=== PATIENT | female | born 1990 | race Caucasian/White ===

== ENCOUNTER 2016-07-18 09:17 | Emergency (ER) | payer OTHER ==
[2016-07-18 10:06] VITALS: BP 130/81
--- NOTE | 2016-07-18 10:47 | UC ---
Throat Pain/Nasal Davis HPI - HPI Summary HPI Summary: ONE WEEK OF SINUS PRESSURE, CONGESTION AND COUGH. NO FEVER - History of Current Complaint Chief Complaint: UCGeneralIllness Stated Complaint: SINUS COMPLAINT Time Seen by Provider: 07/18/16 10:02 Hx Obtained From: Patient, Family/Nursing Assistant Hx Last Menstrual Period: 06/30/16 Onset/Duration: Gradual Onset, Lasting Weeks, Still Present Severity: Moderate Pain Intensity: 5 Pain Scale Used: Adult Non Verbal Cough: Nonproductive Associated Signs & Symptoms: Positive: Hoarseness, Sinus Discomfort, Nasal Discharge - Epiglottits Risk Factors Epiglottis Risk Factors: Negative - Allergies/Home Medications Allergies/Adverse Reactions: Allergies Allergy/AdvReac Type Severity Reaction Status Date / Time No Known Allergies Allergy Verified 02/24/16 09:26 PMH/Surg Hx/FS Hx/Imm Hx Previously Healthy: Yes Endocrine History Of: Denies: Diabetes, Thyroid Disease Cardiovascular History Of: Denies: Cardiac Disorders, Hypertension Respiratory History Of: Denies: COPD, Asthma GI/ History Of: Denies: Ulcer - Surgical History Surgical History: None - Family History Known Family History: Positive: Other - HLD Negative: Cardiac Disease, Hypertension, Diabetes - Social History Occupation: Employed Full-time Lives: With Family Alcohol Use: Occasionally Alcohol Amount: 1-2 on the weekend Substance Use Type: None Substance Use Comment - Amount & Last Used: quit in [place] Smoking Status (MU): Never Smoked Tobacco - Immunization History Most Recent Influenza Vaccination: not utd Most Recent Tetanus Shot: utd Most Recent Pneumonia Vaccination: none Review of Systems Constitutional: Negative Skin: Negative Eyes: Negative ENT: Nasal Discharge Respiratory: Cough Cardiovascular: Negative Gastrointestinal: Negative Genitourinary: Negative Motor: Negative Neurovascular: Negative Musculoskeletal: Negative Neurological: Negative Psychological: Negative All Other Systems Reviewed And Are Negative: Yes Physical Exam Triage Information Reviewed: Yes Appearance: Well-Appearing, No Pain Distress, Well-Nourished Vital Signs: Initial Vital Signs Temp 99.9 F 07/18/16 09:38 Pulse 90 07/18/16 09:38 Resp 18 07/18/16 09:38 BP 130/81 07/18/16 09:38 Pulse Ox 98 07/18/16 09:38 Vital Signs Reviewed: Yes Eye Exam: Normal ENT: Positive: Pharynx normal, TM bulging, TM dull Dental Exam: Normal Neck exam: Normal Neck: Positive: Supple, Nontender Respiratory Exam: Normal Respiratory: Positive: Chest non-tender, Lungs clear, Normal breath sounds, No respiratory distress, No accessory muscle use Cardiovascular Exam: Normal Cardiovascular: Positive: RRR, No Murmur Abdominal Exam: Normal Musculoskeletal Exam: Normal Musculoskeletal: Positive: Strength Intact, ROM Intact Neurological Exam: Normal Psychological Exam: Normal Skin Exam: Normal Throat Pain/Nasal Course/Dx - Differential Dx/Diagnosis Differential Diagnosis/HQI/PQRI: Mononucleosis, Pharyngitis, Sinusitis, Tonsillitis, URI Provider Diagnoses: SINUSITIS Discharge - Discharge Plan Condition: Stable Disposition: HOME Prescriptions: Amoxicillin/Clavulanate TAB* [Augmentin TAB 875*] 875 mg PO BID #20 tab Patient Education Materials: Sinusitis (ED) Forms: *Work Release Referrals: Soha Oscar NP [Primary Care Provider] -
== END 2016-07-18 10:25 | disposition home or self-care (01) ==
LOC: UCEAST 09:17
DX: J32.9 Chronic sinusitis, unspecified (principal)
CPT/HCPCS: 99212; G0463

== ENCOUNTER 2017-01-10 19:28 | Emergency (ER) | payer OTHER ==
[2017-01-10 19:57] VITALS: BP 142/92
--- NOTE | 2017-01-10 20:05 | UC ---
Complaint Female HPI - HPI Summary HPI Summary: Urinary pain, frequency, and blood starting today. Denies fever, vomiting, or back pain. No vaginal symptoms. - History Of Current Complaint Chief Complaint: UCGU Stated Complaint: burning urination Time Seen by Provider: 01/10/17 19:48 Hx Obtained From: Patient Hx Last Menstrual Period: December 22, 2016 ?: No Onset/Duration: Gradual Onset, Lasting Hours Timing: Constant Severity Initially: Moderate Severity Currently: Mild Character: Dull, Burning Aggravating Factor(s): Urination Associated Signs And Symptoms: Negative: Fever, Back Pain, Vaginal Bleeding/ Discharge - Allergies/Home Medications Allergies/Adverse Reactions: Allergies Allergy/AdvReac Type Severity Reaction Status Date / Time No Known Allergies Allergy Verified 02/24/16 09:26 PMH/Surg Hx/FS Hx/Imm Hx Previously Healthy: Yes - Surgical History Surgical History: None - Family History Known Family History: Positive: Other - HLD Negative: Cardiac Disease, Hypertension, Diabetes - Social History Occupation: Employed Full-time Alcohol Use: Occasionally Alcohol Amount: 1-2 on the weekend Substance Use Type: Marijuana Substance Use Comment - Amount & Last Used: quit in [place] Smoking Status (MU): Never Smoked Tobacco - Immunization History Most Recent Influenza Vaccination: not utd Most Recent Tetanus Shot: utd Most Recent Pneumonia Vaccination: none Review of Systems Constitutional: Negative Skin: Negative Eyes: Negative ENT: Negative Respiratory: Negative Cardiovascular: Negative Gastrointestinal: Negative Genitourinary: Dysuria, Hematuria, Frequency, Urgency Motor: Negative Neurovascular: Negative Musculoskeletal: Negative Neurological: Negative Psychological: Negative Is Patient Immunocompromised?: No All Other Systems Reviewed And Are Negative: Yes Physical Exam Triage Information Reviewed: Yes Appearance: Well-Appearing, No Pain Distress, Well-Nourished Vital Signs: Initial Vital Signs Temp 98.2 F 01/10/17 19:52 Pulse 67 01/10/17 19:52 Resp 16 01/10/17 19:52 BP 142/92 01/10/17 19:52 Pulse Ox 100 01/10/17 19:52 Vital Signs Reviewed: Yes Eye Exam: Normal Eyes: Positive: Conjunctiva Clear ENT Exam: Normal ENT: Positive: Normal ENT inspection, Hearing grossly normal, Pharynx normal, TMs normal Neck exam: Normal Respiratory Exam: Normal Respiratory: Positive: Chest non-tender, Lungs clear, Normal breath sounds, No respiratory distress, No accessory muscle use Cardiovascular Exam: Normal Cardiovascular: Positive: RRR, No Murmur Abdomen Description: Positive: Soft. Negative: CVA Tenderness (R), CVA Tenderness (L) Musculoskeletal Exam: Normal Neurological Exam: Normal Neurological: Positive: Alert Psychological Exam: Normal Skin Exam: Normal Complaint Female Dx - Differential Dx/Diagnosis Provider Diagnoses: UTI Discharge - Discharge Plan Condition: Stable Disposition: HOME Prescriptions: Nitrofurantoin Monohyd Macro [Macrobid] 100 mg PO BID #10 cap Phenazopyridine 200 mg (NF) [Pyridium 200 MG tab *] 200 mg PO TID #3 tab Patient Education Materials: Urinary Tract Infection in Women (ED) Referrals: Soha Oscar NP [Primary Care Provider] -
== END 2017-01-10 20:29 | disposition home or self-care (01) ==
LOC: UCEAST 19:28
DX: N39.0 Urinary tract infection, site not specified (principal); R31.9 Hematuria, unspecified; Z32.02 Encounter for pregnancy test, result negative
CPT/HCPCS: 81003; 84702; 87077; 87086; 87186; 99212; G0463

== ENCOUNTER 2017-04-28 08:53 | Emergency (ER) | payer OTHER ==
[2017-04-28 09:10] VITALS: BP 127/61
--- NOTE | 2017-04-28 10:04 | UC ---
Complaint Female HPI - HPI Summary HPI Summary: 26yo WF c/o uriary frequency urgency dysuria with suprapubic pains x 2 days. Denies f/c/LBP - History Of Current Complaint Chief Complaint: UCGU Stated Complaint: BURNING AND FREQUENT URINATION Time Seen by Provider: 04/28/17 09:16 Hx Obtained From: Patient Hx Last Menstrual Period: 04/13/17 Onset/Duration: Sudden Onset Timing: Constant Severity Initially: Moderate Severity Currently: Moderate - Allergies/Home Medications Allergies/Adverse Reactions: Allergies Allergy/AdvReac Type Severity Reaction Status Date / Time No Known Allergies Allergy Verified 04/28/17 09:06 PMH/Surg Hx/FS Hx/Imm Hx Previously Healthy: Yes - Surgical History Surgical History: None - Family History Known Family History: Positive: Other - HLD Negative: Cardiac Disease, Hypertension, Diabetes - Social History Alcohol Use: Occasionally Alcohol Amount: 1-2 on the weekend Substance Use Type: None Substance Use Comment - Amount & Last Used: quit in highschool Smoking Status (MU): Never Smoked Tobacco - Immunization History Most Recent Influenza Vaccination: not utd Most Recent Tetanus Shot: utd Most Recent Pneumonia Vaccination: none Review of Systems Constitutional: Negative Skin: Negative Eyes: Negative ENT: Negative Respiratory: Negative Cardiovascular: Negative Gastrointestinal: Negative Genitourinary: Dysuria, Frequency, Urgency Motor: Negative Neurovascular: Negative Musculoskeletal: Negative Neurological: Negative Psychological: Negative All Other Systems Reviewed And Are Negative: Yes Physical Exam Triage Information Reviewed: Yes Appearance: No Pain Distress Vital Signs: Initial Vital Signs Temp 36.8 C 04/28/17 09:07 Pulse 69 04/28/17 09:07 Resp 18 04/28/17 09:07 BP 127/61 04/28/17 09:07 Pulse Ox 100 04/28/17 09:07 Vital Signs Reviewed: Yes Eye Exam: Normal ENT Exam: Normal Dental Exam: Normal Neck exam: Normal Neck: Positive: 1 Respiratory Exam: Normal Cardiovascular Exam: Normal Abdominal Exam: Normal Abdomen Description: Positive: Soft, Other: - mild suprapubic tenderness. Negative: CVA Tenderness (R), CVA Tenderness (L) Musculoskeletal Exam: Normal Neurological Exam: Normal Psychological Exam: Normal Skin Exam: Normal Complaint Female Dx - Course Course Of Treatment: UA positive for LE and blood - Differential Dx/Diagnosis Provider Diagnoses: acute cystitis Discharge - Discharge Plan Condition: Stable Disposition: HOME Prescriptions: Sulfamethox/Trimethoprim DS* [Bactrim DS 800/160 TAB*] 1 tab PO BID 7 Days #14 tab Patient Education Materials: Urinary Tract Infection in Women (ED) Referrals: Soha Oscar NP [Primary Care Provider] - Additional Instructions: as tolerated
== END 2017-04-28 10:00 | disposition home or self-care (01) ==
LOC: UCEAST 08:53
DX: N30.00 Acute cystitis without hematuria (principal); Z72.89 Other problems related to lifestyle
CPT/HCPCS: 81003; 87077; 87086; 87186; 99212; G0463

== ENCOUNTER 2017-05-03 20:06 | Emergency (ER) | payer OTHER ==
[2017-05-03 20:14] VITALS: BP 111/69
--- NOTE | 2017-05-03 20:28 | UC ---
Allergic Reaction HPI - HPI Summary HPI Summary: Pt presents with rash to upper body. She tells me that she has been taking Bactrim for a uti for the last 5 days. She is unsure if she has ever taken this before. The day after beginning the bactrim, she developed a "dry rash" on the back of her hands. She didn't think much of it until yesterday when the rash started to move up her b/l forearms. Today has progressed to her shoulders and chest. Her UTI symptoms are improved. She denies fever, chills, SOB or difficulty breathing, chest pain, abdominal pain, n/v/d/c - History of Current Complaint Hx Obtained From: Patient Hx Last Menstrual Period: 04/13/17 Onset/Duration: Gradual Onset Severity Initially: Moderate Severity Currently: Severe Pain Intensity: 9 Pain Scale Used: 0-10 Numeric <Bryant Vigil - Last Filed: 05/03/17 21:07> <Daina Chairez - Last Filed: 05/03/17 22:00> - History of Current Complaint Chief Complaint: UCAllergicReaction Stated Complaint: ALLERGIC REACTION Time Seen by Provider: 05/03/17 20:28 - Allergies/Home Medications Allergies/Adverse Reactions: Allergies Allergy/AdvReac Type Severity Reaction Status Date / Time Sulfa Antibiotics Allergy Severe Hives Verified 05/03/17 20:46 PMH/Surg Hx/FS Hx/Imm Hx Previously Healthy: Yes - Surgical History Surgical History: None - Family History Known Family History: Positive: Other - HLD Negative: Cardiac Disease, Hypertension, Diabetes - Social History Alcohol Use: Occasionally Alcohol Amount: 1-2 on the weekend Substance Use Type: None Substance Use Comment - Amount & Last Used: quit in [place] Smoking Status (MU): Never Smoked Tobacco - Immunization History Most Recent Influenza Vaccination: not utd Most Recent Tetanus Shot: utd Most Recent Pneumonia Vaccination: none <Bryant Vigil - Last Filed: 05/03/17 21:07> Review of Systems Constitutional: Negative Skin: Rash - b/l arms and torso Eyes: Negative ENT: Negative Respiratory: Negative Cardiovascular: Negative Gastrointestinal: Negative Neurological: Negative All Other Systems Reviewed And Are Negative: Yes <Bryant Vigil - Last Filed: 05/03/17 21:07> Physical Exam Triage Information Reviewed: Yes Appearance: Well-Appearing, No Pain Distress, Well-Nourished Vital Signs: Initial Vital Signs Temp 98.2 F 05/03/17 20:11 Pulse 82 05/03/17 20:11 Resp 18 05/03/17 20:11 BP 111/69 05/03/17 20:11 Pulse Ox 100 05/03/17 20:11 Vital Signs Reviewed: Yes Eyes: Positive: Conjunctiva Clear. Negative: Conjunctiva Inflamed, Discharge ENT: Positive: Hearing grossly normal, Pharynx normal, Uvula midline. Negative : Pharyngeal erythema, Tonsillar swelling, Tonsillar exudate, Muffled voice, Hoarse voice Neck: Positive: Supple, Nontender, No Lymphadenopathy Respiratory: Positive: Chest non-tender, Lungs clear, Normal breath sounds, No respiratory distress, No accessory muscle use Cardiovascular: Positive: RRR, No Murmur, Pulses Normal Neurological: Positive: Alert Psychological: Positive: Age Appropriate Behavior Skin: Positive: rashes - Diffuse erythematous smooth plaque with and smooth nodules and wheals that are pruritic on the bilateral arms and chest. No drainage, streaking, or skin breakdown. <Bryant Vigil - Last Filed: 05/03/17 21:07> Vital Signs: Initial Vital Signs Temp 98.2 F 05/03/17 20:11 Pulse 82 05/03/17 20:11 Resp 18 05/03/17 20:11 BP 111/69 05/03/17 20:11 Pulse Ox 100 05/03/17 20:11 <Daina Chairez - Last Filed: 05/03/17 22:00> Allergic Reaction Course/Dx - Course Course Of Treatment: Suspect this is an allergic reaction to Bactrim. She is in no distress and is breathing comfortably. 6mg decadron given here. 5 days of prednisone sent. May take benadryl every 6 hours prn itch. Stop Bactrim. Advised that if symptoms worsen to go to the ED. - Differential Dx/Diagnosis Provider Diagnoses: Allergic reaction to bactrim. Hives. Itching <Bryant Vigil - Last Filed: 05/03/17 21:07> Discharge <Bryant Vigil - Last Filed: 05/03/17 21:07> <Daina Chairez - Last Filed: 05/03/17 22:00> - Discharge Plan Condition: Stable Disposition: HOME Prescriptions: predniSONE TAB* [Deltasone TAB*] 50 mg PO DAILY #5 tab Patient Education Materials: Urticaria (ED), General Allergic Reaction (ED) Referrals: Celestina RUCKER,Soha [Primary Care Provider] - Additional Instructions: If you develop a fever, shortness of breath, chest pain, flaking or sloughing skin, new or worsening symptoms - please call your PCP or go to the ED. 1) If your rash or symptoms worsen despite the steroids - please call 911 or go to the ER. 2) May take benadryl every 6 hours as your need to for the itchiness. Attestation Statement User Type: Provider - I was available for consult. This patient was seen by the SANDRA. The patient was not presented to, seen by, or examined by me. -Andrew <Daina Chairez - Last Filed: 05/03/17 22:00>
[2017-05-03] MEDS ORDERED: Dexamethasone TAB* 4 MG PO ONE (20:33)
== END 2017-05-03 20:51 | disposition home or self-care (01) ==
LOC: UCEAST 20:06
DX: L50.0 Allergic urticaria (principal); L29.9 Pruritus, unspecified; T37.0X5A Adverse effect of sulfonamides, initial encounter; Y92.9 Unspecified place or not applicable; Z72.89 Other problems related to lifestyle
CPT/HCPCS: 99212; G0463; J8540

== ENCOUNTER 2017-05-04 01:36 | Emergency (ER) | payer OTHER ==
[2017-05-04] MEDS ORDERED: diPHENhydraMINE PO* 25 MG PO ONE (02:14)
[2017-05-04] MEDS ORDERED: Famotidine TAB* 20 MG PO ONE (02:14)
[2017-05-04] MEDS ORDERED: predniSONE TAB* 10 MG PO ONE (02:14)
--- NOTE | 2017-05-04 02:19 | ED ---
Skin Complaint - HPI Summary HPI Summary: 26F presents with worsening of hives. She was seen at urgent care yesterday and prescribed prednisone which has been taking. She took two dose of Benadryl. She states the rash has been spreading to knees and face. She started taking bactrim for a uti 7 days ago but stop it. She denies any chest pain , SOB, n/v/ c, abdominal pain, or sore throat. She states the rash is itchy and she feels like she is on fire. She has not tried any hydrocortisone or calamine lotion. - History of Current Complaint Chief Complaint: EDRashSkinAbscess Time Seen by Provider: 05/04/17 01:51 Stated Complaint: POSS REACTION TO MEDICATION Hx Last Menstrual Period: 04/13/17 Pain Intensity: 0 - Allergy/Home Medications Allergies/Adverse Reactions: Allergies Allergy/AdvReac Type Severity Reaction Status Date / Time Sulfa Antibiotics Allergy Severe Hives Verified 05/03/17 20:46 PMH/Surg Hx/FS Hx/Imm Hx Endocrine/Hematology History: Denies: Hx Diabetes, Hx Thyroid Disease Cardiovascular History: Denies: Hx Hypertension Respiratory History: Denies: Hx Asthma, Hx Chronic Obstructive Pulmonary Disease (COPD) GI History: Denies: Hx Ulcer - Immunization History Date of Influenza Vaccine: has not received Infectious Disease History: No Infectious Disease History: Denies: Hx Clostridium Difficile, Hx Hepatitis, Hx Human Immunodeficiency Virus (HIV), Hx of Known/Suspected MRSA, Hx Shingles, Hx Tuberculosis, Hx Known/ Suspected VRE, Hx Known/Suspected VRSA, History Other Infectious Disease, Traveled Outside the [place] in Last 30 Days - Family History Known Family History: Positive: Other - HLD Negative: Cardiac Disease, Hypertension, Diabetes - Social History Alcohol Use: Occasionally Alcohol Amount: 1-2 on the weekend Substance Use Type: Reports: None Substance Use Comment - Amount & Last Used: quit in highschool Smoking Status (MU): Never Smoked Tobacco Review of Systems Negative: Fever Negative: Chest Pain Negative: Shortness Of Breath Positive: Rash All Other Systems Reviewed And Are Negative: Yes Physical Exam Triage Information Reviewed: Yes Vital Signs On Initial Exam: Initial Vitals Temp Pulse Resp BP Pulse Ox 97.2 F 86 16 133/78 98 05/04/17 01:37 05/04/17 01:37 05/04/17 01:37 05/04/17 01:37 01/10/18 01:37 Vital Signs Reviewed: Yes Appearance: Positive: Well-Appearing Skin: Positive: Warm, Dry, Other - urticaria across trunk, upper arms, and knees Head/Face: Positive: Normal Head/Face Inspection Eyes: Positive: Normal, EOMI, LUIS, Conjunctiva Clear ENT: Positive: Normal ENT inspection, Pharynx normal, TMs normal Respiratory/Lung Sounds: Positive: Clear to Auscultation, Breath Sounds Present Cardiovascular: Positive: Normal, RRR Abdomen Description: Positive: Nontender, Soft Bowel Sounds: Positive: Present Musculoskeletal: Positive: Normal Neurological: Positive: Normal Psychiatric: Positive: Normal Diagnostics - Vital Signs Vital Signs Temp Pulse Resp BP Pulse Ox 05/04/17 01:37 97.2 F 86 16 133/78 98 - Laboratory Lab Statement: Any lab studies that have been ordered have been reviewed, and results considered in the medical decision making process. Course/Dx - Course Course Of Treatment: 26F presents with worsening of hives. She was seen at urgent care yesterday and prescribed prednisone which has been taking. She took two dose of Benadryl. She states the rash has been spreading to knees and face. She started taking bactrim for a uti 7 days ago but stop it. She denies any chest pain , SOB, n/v/c, abdominal pain, or sore throat. She states the rash is itchy and she feels like she is on fire. She has not tried any hydrocortisone or calamine lotion. on exam has uritcaria across trunk, upper arms, and knee. lungs CTA. pharnyx normal. explained need to add benadryl more frequently and apply hydrocoristone for itching. will add prednisone taper and famotidine. explained normal for rash to get better and worst. patient understand and agrees with plan. - Differential Diagnoses - Skin Complaint Differential Diagnoses: Contact Dermatitis, Drug Rash, Urticaria - Diagnoses Provider Diagnoses: Allergic reaction caused by a drug Discharge - Discharge Plan Condition: Good Disposition: HOME Prescriptions: Famotidine TAB* [Pepcid 20 MG TAB*] 20 mg PO DAILY #7 tab predniSONE TAB* [Deltasone TAB*] 10 mg PO DAILY #8 tab Patient Education Materials: Urticaria (ED) Referrals: Celestina RUCKER,Soha [Primary Care Provider] - Additional Instructions: Take prednisone 60 mg next two days (50 plus one 10 mg tablet) then just 50mg for two days, then three tablets for a day, then two tablets then one tablet Take famotidine once a day for next 7 days Take Benadryl every 6 hours for rash Can apply cream with hydrocortisone to area for itchy or calamine lotion Rash will get better and worst depending on histamine reaction in body, this is normal Return to ED if develop SOB, difficulty swallowing or any new or worsening symptoms
[2017-05-04 03:00] VITALS: BP 114/56
== END 2017-05-04 02:55 | disposition home or self-care (01) ==
LOC: ED 01:36
DX: L50.0 Allergic urticaria (principal); T37.0X5A Adverse effect of sulfonamides, initial encounter; Z88.2 Allergy status to sulfonamides
CPT/HCPCS: 99283; A9270-GY; J7512

== ENCOUNTER 2017-05-23 16:59 | Emergency (ER) | payer OTHER ==
--- OUTSIDE RECORDS SUMMARY | 2017-05-23 17:06 | XMS REPORT ---
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 Payers Type Date Identification Numbers Payment Provider Subscriber Commercial Policy Number: [id number] Aedayne Hannah Jimenez Group Number: [id number] [address] PayID: [id number] [place] [address] Health Maintenance Expires: Policy Number: [facility] Organization (O) 04/24/2017 [id number] Tony Group Number: [id number] [address] PayID: [id number] [place] [address] Problems Description No Information Family History Date Family Member(s) Problem(s) Comments Father Non Contributory Mother Hypothyroidism First Sister Non Contributory Social History Type Date Description Comments Lives With Alone Smoke-Free Smoke-Free Home Yes Smoking Patient has never smoked 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 Currently Active sexually active Parental Involvement mother and father are both very involved General Hx Text High school grad September 2008/ [employer]UG[employer] 2012 Allergies, Adverse Reactions, Alerts Date Description Reaction Status Severity Comments 05/04/2017 Sulfa Drugs active rash 04/201709/06/2001 NKDA inactive Medications Medication Date Status Form Strength Qnty SIG Indications Ordering Provider Prednisone 05/05/ Hx Tablets 10mg 86tab 6 tabs qd Celestina 2018 - s x 4 days,5 Lin, 05/25/ tab qd x 4 RN,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,MS 2018 days, 4 tab qd x 4days, 3 tabs qd x 4 days, 2 tab qd x 4 days, 1 tab x 4d, 1/2 tab daily x4d Ondansetron 07/30/ Active Tablets 4mg 10tab 1-2 tab q8 Celestina, 2016 Dispers s hours as Lin, needed RN,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,MS nausea Tri-Sprintec 00/00/ Active Tablets 0.18/0.21 30tab 1 po qd Unknown 0000 5/0.25 s mg-3 Out Of Work 02/25/ Hx Zohaib was Celestina 2015 - seen in Lin, 07/29/ the RN,PATRICK,MS 2017 office, out of work 02/24 through 02/27/16 due to medical reasons Doxycycline 06/11/ Hx Tablets DR 100mg 46tab 1 po qd Grtea Oscar 2014 - s starting 2 Lin, 09/09/ days prior RN,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,MS 2014 to travel, then 1 po daily while traveling, and continue 1 po qd x 4 weeks upon return to [facility] Prednisone 04/24/ Hx Tablets 20mg 5tabs 1 po qd x Celestina, 2012 - 5 days Lin, 04/29/ RN,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,MS 2013 Sulfamethoxazol 01/04/ Hx Tablets 800-160mg 10tab 1 po bid x Celestina e/Trimethoprim 2012 - s 5 days Lin, DS 04/10/ RN,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,MS 2012 PT Is Ill 10/15/ Hx please Venice Lang - excuse Giovanni, 10/16/ from work M.D. 2011 as she is ill Flonase 10/15/ Hx Suspension 50mcg/Act 1unit 2 sprays Precious 2011 - s each Giovanni, 06/10/ nostril qd M.D. 2014 Amoxicillin/Pot 10/15/ Hx Tablets 875-125mg 28tab po bid katarina Lang 2011 - s Giovanni Clavulanate 10/29/ M.D. 2011 Hannah Was Seen 08/05/ Hx Celestina, 08/04 For 2012 - Lin, Pharyngitis 01/12/ RN,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,MS 2011 Amoxicillin 08/04/ Hx Tablets 875mg 20tab 1 po bid x Celestina, 2011 - s 10 days Lin, 08/14/ RN,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,MS 2011 Prednisone 08/04/ Hx Tablets 10mg 15tab 3 po qd x Celestina, 2011 - s 5 days Lin, 08/09/ RN,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,MS 2011 Amoxicillin 09/14/ Hx Tablets 875mg 20tab 1 po bid x Celestina, 2010 - s 10 days Lin, 09/24/ RN,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,MS 2010 Prednisone 09/14/ Hx Tablets 10mg 15tab 3 po qd x Celestina, 2010 - s 5 days Lin, 09/19/ RN,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,MS 2010 Amoxicillin/Cla 04/28/ Hx Tablets 875-125mg 20tab 1 po bid x vanessa Oscar 2010 - s 10 days Lin, Potassium 05/08/ with food RN,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,MS 2010 Metronidazole 11/20/ Hx Cream 0.75% 45gm apply to Celestina, 2009 - face bid Lin, 09/13/ RN,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,MS 2010 Retin-A 11/20/ Hx Cream 0.1% 20gm apply to Celestina, 2009 - clean face Lin, 09/13/ at hs, 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,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,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 every other night Aczone 06/19/ Hx Gel 5% 30G apply Celestina, 2009 - small Lin, 11/18/ amount to RN,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,MS 2009 clean face bid Doxycycline 06/19/ Hx Tablets 100mg 60tab 1 po bid Celestina Monohydrate 2009 - s Lin, 09/13/ RN,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,MS 2011 Cleocin-T 05/23/ Hx Lotion 1% 60cc apply to Celestina, 2009 - clean face Lin, 06/19/ bid RN,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,MS 2009 Amoxicillin/Cla 10/11/ Hx Tablets 875mg 20tab 1 po bid x vanessa Oscar 2008 - s 10 days, Lin, Potassium 10/20/ take with RN,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,MS 2008 food Lortab 2.5 01/22/ Hx Tablets 10tab 1 po q6 Celestina, 2007 - s hours for Lin, 08/29/ pain prn RN,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,MS 2008 Augmentin 01/22/ Hx Tablets 875mg 28tab 1 po bid Celestina, 2007 - s with food Lin, 02/05/ x 14 days RN,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,MS 2007 Tretinoin 01/31/ Hx Cream 0.1% 20G Apply To 2006 - Clean Face Lin, 02/03/ Sparingly RN,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,MS 2006 Once A Night Minocycline HCL 01/31/ Hx Capsules 100mg 30cap 1 PO qd Celestina2006 - s Lin, 02/03/ RN,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,MS 2006 Cleocin-T 12/29/ Hx Lotion 1% 60cc Apply To 2006 - Clean Face Lin, 01/31/ bid RN,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,MS 2006 Benzaclin 12/22/ Hx Gel 1-5% 50G apply bid Celestina2006 - to clean Lin, 05/23/ face RN,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,MS 2009 large tube please Augmentin 07/13/ Hx Tablets 500mg 14tab 1 PO bid X Celestina2006 - s 7 Days Lin, 07/20/ RN,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,MS 2006 Medrol Dose Chema 02/17/ Hx Tablets 4mg 1Pack as Celestina2005 - Directed Lin, 03/05/ RN,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,MS 2005 Return To Work Tuesday 845.09 Ankur Syed 2005 - 11/03 MD Pacheco 2006 Z-Chema 04/02/ Hx Tablets 250mg 1Pak 2 Stat And 462 Yahaira W 2004 - 1 qd X MD Pacheco 04/07/ 4Days 2004 Out Of Gym 09/03/ out of gym Celestina, 2004 - 07/27/04 Lin, 08/31/ through RN,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,MS 200509/04/04 due to mono. return to gym 09/07/04 Zithromax 07/27/ Hx Tablets 250mg 6tabs 2 po day Celestina, 2004 - 1, 1 po qd Lin, 08/01/ x day 2-5 RN,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,MS 2004 Prednisone 07/27/ Hx Tablets 20mg 10tab 2 po qd x Celestina2004 - s 5 days Lin, 08/01/ RN,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,MS 2004 Out Of Gym out of gym Celestina, 2004 - x 2 weeks Lin, 09/02/ due to RN,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,MS 2004 medical reasons Amoxil 05/13/ Hx Tablets 875mg 20tab 1 PO bid X Celestina, 2004 - s 10 Days Lin, 05/23/ RN,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,MS 2004 Entex LA 04/16/ Hx Tablets 600mg;30 30tab 1/2 tab [place], 2002 - mg s bid Giovanni 04/21/ M.DFanny 2002 Augmentin 11/16/ Hx 500mg 14uni 1 PO bid Celestina 2002 - ts With Food Lin, 11/23/ X 7 Days RN,PATRICK,MS 2002 Bactroban 11/16/ Hx Ointment Apply tid Celestina 2002 - Lin, 11/23/ RNPATRICK,MS 2002 None 09/27/ Hx Celestina 2002 - Lin, 11/19/ RN,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,MS 2009 Pediotic 06/29/ Hx 7.5ml 3 Drops Jc Oscar 2002 - Effected Lin, 07/04/ Ear tid RN,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,MS 2002 Medications Administered in Office Medication Date Status Form Strength Qnty SIG Indications Ordering Provider PPD Administered Injection Cira Oscar RN,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,MS Immunizations CPT Code Status Date Vaccine Lot # [id number] Given 06/10/2014 Typhoid Vaccine, Capsular Polysaccharide For Intramuscular Use 61959 Given 06/10/2014 Typhoid Vaccine, Capsular Polysaccharide For Intramuscular Use 02875 Given 06/10/2014 Hepatitis A Vaccine, Adult Dosage [id number] 59834 Given 10/22/2008 Menactra/Menveo Meningococcal Vaccine [id number] 49489 Given 10/22/2008 Tdap (Adacel) Ages 7 And Above Only [id number] 98982 Given 10/05/2002 Immunization Td 7 Yrs Or Older 43489 Given 12/15/1995 MMR Virus Immunization 64002 Given 12/15/1995 DTaP Immunization 7 Yrs & Younger 94958 Given 10/06/1992 Hepatitis B Vac Ped/Adolescent 3 Dose Schedule 10109 Given 10/06/1992 Oral Poliovirus Immunization 24197 Given 06/05/1992 DTaP Immunization 7 Yrs & Younger 97197 Given 01/28/1992 Hib Pedvaxhib Vac 3 Dose Schedule 39774 Given 01/28/1992 Oral Poliovirus Immunization 25300 Given 01/28/1992 Hepatitis B Vac Ped/Adolescent 3 Dose Schedule 54235 Given 09/26/1991 Hepatitis B Vac Ped/Adolescent 3 Dose Schedule 64540 Given 09/26/1991 MMR Virus Immunization 28702 Given 03/27/1991 DTaP Immunization 7 Yrs & Younger 10747 Given 03/27/1991 Hib Pedvaxhib Vac 3 Dose Schedule 10534 Given 01/26/1991 Oral Poliovirus Immunization 06467 Given 01/26/1991 DTaP Immunization 7 Yrs & Younger 77855 Given 01/26/1991 Hib Pedvaxhib Vac 3 Dose Schedule 34528 Given 1990 Oral Poliovirus Immunization 97601 Given 1990 DTaP Immunization 7 Yrs & Younger 84357 Given 1990 Hib Pedvaxhib Vac 3 Dose Schedule Vital Signs Date Vital Result Comment 05/06/2017 Body Temperature 99.1 F Weight 139.00 lb Heart Rate 62 /min BP Systolic 110 mmHg BP Diastolic 70 mmHg 05/05/2017 Body Temperature 96.7 F Weight 139.00 lb Heart Rate 80 /min BP Systolic 118 mmHg BP Diastolic 70 mmHg Height 66.5 inches 5'6.50" BMI (Body Mass Index) 22.1 kg/m2 07/30/2016 Body Temperature 99.0 F Weight 147.00 lb Heart Rate 80 /min BP Systolic 120 mmHg BP Diastolic 70 mmHg Height 66.5 inches 5'6.50" BMI (Body Mass Index) 23.4 kg/m2 02/26/2016 Body Temperature 98.4 F Weight 146.00 lb Heart Rate 78 /min BP Systolic 120 mmHg BP Diastolic 70 mmHg Height 66.5 inches 5'6.50" BMI (Body Mass Index) 23.2 kg/m2 06/10/2014 Body Temperature 98.7 F Weight 141.00 lb Heart Rate 80 /min BP Systolic 118 mmHg BP Diastolic 74 mmHg Respiratory Rate 18 /min 01/04/2013 Body Temperature 98.6 F Weight 141.00 lb Heart Rate 72 /min BP Systolic 114 mmHg BP Diastolic 70 mmHg Urine Dipstick - Blood 2+ Urine Dipstick - Protein TRACE Urine Dipstick - Glucose NEGATIVE 01/14/2012 Body Temperature 97.9 F Weight 145.00 lb Heart Rate 80 /min BP Systolic 116 mmHg BP Diastolic 70 mmHg 10/16/2011 Body Temperature 98.8 F Heart Rate 66 /min Respiratory Rate 12 /min 08/05/2011 Body Temperature 99.9 F Weight 141.00 lb Height 66.5 inches 5'6.50" BMI (Body Mass Index) 22.4 kg/m2 09/14/2010 Body Temperature 98.6 F Weight 139.00 lb Heart Rate 88 /min BP Systolic 116 mmHg BP Diastolic 70 mmHg Height 66.5 inches 5'6.50" BMI (Body Mass Index) 22.1 kg/m2 04/28/2010 Body Temperature 101.7 F Weight 132.00 lb Heart Rate 110 /min BP Systolic 102 mmHg BP Diastolic 60 mmHg 11/20/2009 Body Temperature 97.7 F Weight 143.00 lb Heart Rate 60 /min BP Systolic 100 mmHg BP Diastolic 60 mmHg 06/19/2009 Body Temperature 98.5 F Weight 139.00 lb Weight Percentile 71st Heart Rate 78 /min BP Systolic 122 mmHg BP Diastolic 70 mmHg Height 66 inches 5'6" Height Percentile 75 % BMI (Body Mass Index) 22.4 kg/m2 Body Mass Index Percentile 61 % 10/22/2008 Body Temperature 99.6 F Weight 135.00 lb Weight Percentile 70th Heart Rate 72 /min BP Systolic 120 mmHg BP Diastolic 70 mmHg Height 66 inches 5'6" Height Percentile 75 % BMI (Body Mass Index) 21.8 kg/m2 Body Mass Index Percentile 56 % Urine Dipstick - Blood NEGATIVE Urine Dipstick - Protein TRACE Urine Dipstick - Glucose NEGATIVE Right Visual Acuity Distance 20/25 Left Visual Acuity Distance 20/25 10/11/2008 Body Temperature 97.8 F Weight 135.00 lb Weight Percentile 70th Heart Rate 80 /min BP Systolic 120 mmHg BP Diastolic 78 mmHg 01/23/2008 Body Temperature 99.7 F Heart Rate 80 /min BP Systolic 130 mmHg BP Diastolic 70 mmHg 06/05/2007 Body Temperature 98.6 F Weight 138.38 lb Weight Percentile 79th Heart Rate 60 /min BP Systolic 124 mmHg BP Diastolic 70 mmHg Respiratory Rate 16 /min Height 65.5 inches 5'5.50" Height Percentile 70 % BMI (Body Mass Index) 22.7 kg/m2 Body Mass Index Percentile 72 % 12/22/2006 Body Temperature 98.6 F Weight 141.00 lb Weight Percentile 83rd Heart Rate 80 /min BP Systolic 120 mmHg BP Diastolic 80 mmHg 07/13/2006 Body Temperature 98.4 F Weight 136.00 lb Weight Percentile 79th Heart Rate 68 /min 02/17/2006 Weight 138.00 lb Weight Percentile 83rd Heart Rate 72 /min Respiratory Rate 16 /min 11/01/2005 Body Temperature 98.5 F 09/09/2005 Body Temperature 98.6 F Weight 131.00 lb Weight Percentile 77th Heart Rate 68 /min BP Systolic 116 mmHg BP Diastolic 70 mmHg Respiratory Rate 18 /min Height 65 inches 5'5" Height Percentile 69 % BMI (Body Mass Index) 21.8 kg/m2 Body Mass Index Percentile 72 % Urine Dipstick - Blood NEGATIVE Urine Dipstick - Protein NEGATIVE Urine Dipstick - Glucose NEGATIVE Right Visual Acuity Distance 20/20 with glasses Left Visual Acuity Distance 20/25 04/02/2005 Body Temperature 98.5 F Weight 126.00 lb Weight Percentile 73rd Respiratory Rate 12 /min 07/30/2004 Body Temperature 101.6 F 07/27/2004 Body Temperature 98.7 F Weight 121.00 lb Weight Percentile 73rd Heart Rate 80 /min BP Systolic 100 mmHg BP Diastolic 60 mmHg Respiratory Rate 20 /min 07/20/2004 Body Temperature 99.9 F Weight 124.00 lb Weight Percentile 77th Heart Rate 80 /min BP Systolic 100 mmHg BP Diastolic 60 mmHg Respiratory Rate 20 /min Height 64.5 inches 5'4.50" Height Percentile 71 % BMI (Body Mass Index) 21.0 kg/m2 Body Mass Index Percentile 71 % Urine Dipstick - Blood NEGATIVE Urine Dipstick - Protein NEGATIVE Urine Dipstick - Glucose NEGATIVE Right Visual Acuity Distance 20/30 OU 20/25 Left Visual Acuity Distance 20/50 05/13/2004 Body Temperature 97.8 F Weight 126.00 lb Weight Percentile 81st Heart Rate 86 /min 01/05/2004 Body Temperature 101.3 F Heart Rate 88 /min Respiratory Rate 12 /min 04/16/2003 Body Temperature 97.8 F Weight 106.00 lb Weight Percentile 67th 11/16/2002 Body Temperature 98.6 F Weight 106.00 lb Weight Percentile 73rd Respiratory Rate 18 /min 10/05/2002 Weight 107.50 lb Weight Percentile 77th Heart Rate 72 /min BP Systolic 108 mmHg BP Diastolic 50 mmHg Respiratory Rate 18 /min Height 61 inches 5'1" Height Percentile 68 % BMI (Body Mass Index) 20.3 kg/m2 Urine Dipstick - Blood NEGATIVE Urine Dipstick - Protein NEGATIVE Urine Dipstick - Glucose NEGATIVE Right Visual Acuity Distance 20/25 OU 20/25 Left Visual Acuity Distance 20/30 06/29/2002 Body Temperature 98.1 F Weight 103.00 lb Weight Percentile 75th Respiratory Rate 18 /min 09/06/2001 Body Temperature 98.2 F Weight 93.00 lb Weight Percentile 86th Heart Rate 88 /min BP Systolic 104 mmHg BP Diastolic 72 mmHg Height 58 inches 4'10" Height Percentile 92 % BMI (Body Mass Index) 19.4 kg/m2 Results Test Date Test Result H/L Range Note GC/Chlamydia By Dna 05/06/2017 Chlamydia by Dna Probe NEGATIVE Negative Probe GC by Dna Probe NEGATIVE Negative Laboratory test 01/04/2013 Urine Culture Microbiology res <SEE 1 finding NOTE> Laboratory test 04/02/2005 Throat Culture NO BETA HEMOLYTI <SEE 2 finding NOTE> Aaliyah De La Torre Acute 07/27/2004 Ebv Ab Vca, IgM 56 AU High 0-19 3 Antibody Panel Ebv Early Antigen Ab, IgG Positive Negative 4 Ebv Ab Vca, IgG >170 AU 0-19 5 Ebv Nuclear Antigen Ab, IgG Negative AU 0-19 6 Diff For Manual CBC 07/27/2004 Band 2 % 2-6 Neutrophil 32 % Low 50-70 Lymphocyte 45 % High 20-44 Monocyte 2 % 2-9 Atypical Lymphs 19 % Platelet Estimate NORMAL RBC Morphology NORMAL CBC 07/27/2004 WBC 13.5 K/ul 4.5-13.5 RBC 4.94 M/ul 3.90-5.10 Hemoglobin 14.8 GM/dl 11.5-14.8 Hematocrit 43.7 % 36.0-46.0 MCV 88.5 FL 80.0-95.0 MCH 30.0 pg 26.0-32.0 MCHC 33.9 g/dL 31.0-36.0 RDW 11.7 % 11.5-14.5 Platelet Count 229 K/ul 140-440 Laboratory test finding 07/27/2004 Throat Culture NO BETA HEMOLYTI <SEE 7 NOTE> Monospot POSITIVE Laboratory test finding 05/13/2004 Throat Culture NO BETA HEMOLYTI <SEE 8 NOTE> Laboratory test finding 01/06/2004 Throat Culture NO BETA HEMOLYTI <SEE 9 NOTE> 1 Microbiology results SOURCE URINE FINAL RESULT No Growth 2 NO BETA HEMOLYTIC STREPTOCOCCI ISOLATED 3 Negative <20 Positive >19 4 Positive results suggest recent or chronic-active infection. Anti-EA becomes undetectable weeks to months after onset. 5 Negative <20 Positive >19 6 Negative <20 Positive >19 7 NO BETA HEMOLYTIC STREPTOCOCCI ISOLATED 8 NO BETA HEMOLYTIC STREPTOCOCCI ISOLATED 9 NO BETA HEMOLYTIC STREPTOCOCCI ISOLATED Procedures Date CPT Code Description Status 10/22/2008 38290 Visual Screening Test Completed 09/09/2005 58235 Visual Screening Test Completed 07/20/2004 76206 Visual Screening Test Completed 04/21/2001 41561 Electrocardiogram Complete Completed Encounters Type Date Location Provider CPT E/M Dx Office Visit 05/05/2017 10:00a Lin 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 [address] L51.9 Office Visit 07/30/2016 10:30a 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 [address] A08.39 R55 R51 Office Visit 02/26/2016 2:30p 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 [address] Y03.0xxA Y03.0xxA S13.4xxA S13.4xxA Office Visit 06/10/2014 3:00p Lin 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 [address] V05.8 V65.40 V05.3 V05.8 V65.49 Office Visit 01/04/2013 10:00a 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 [address] 788.1 788.41 Office Visit 01/14/2012 2:30p 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 [address] 782.1 Office Visit 10/16/2011 8:00a Giovanni Benitez M.D. 04150 461.1 461.0 Office Visit 08/05/2011 2:00p 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 [address] 463 Office Visit 09/14/2010 1:00p Lin 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 [address] 462 461.0 463 Office Visit 04/28/2010 10:15a [place] [address] 463 780.60 Office Visit 11/20/2009 2:00p [place] [address] 706.1 706.2 Office Visit 06/19/2009 1:30p [place] [address] 706.1 Office Visit 10/22/2008 3:30p Lin Esparza, 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 [address] V20.2 V07.2 Office Visit 10/11/2008 2:30p Lin Esparza, 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 [address] 461.8 Office Visit 01/23/2008 1:00p Lin Esparza, 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 [address] 784.0 461.8 Office Visit 06/05/2007 9:30a Lin Esparza, 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 [address] V20.2 Office Visit 12/22/2006 10:00a Lin Esparza, 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 [address] 706.2 706.1 Office Visit 07/13/2006 9:30a Lin Esparza, 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 [address] 684 Office Visit 02/17/2006 3:00p Lin 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 [address] 847.1 723.1 Office Visit 11/01/2005 9:15[place] [address] 845.09 Office Visit 09/09/2005 3:00p Lin Esparza, 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 [address] V20.2 847.1 214.9 Office Visit 04/02/2005 11:00[place] [address] 462 Office Visit 07/30/2004 5:15p [place] [address] 075 Office Visit 07/27/2004 10:30a Lin Esparza, 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 [address] 462 075 785.6 Office Visit 07/20/2004 3:00p Lin 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 [address] V20.2 465.9 Office Visit 05/13/2004 11:30a Lin Esparza, 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 [address] 462 Office Visit 01/05/2004 8:00a Giovanni Benitez M.D. 96263 462 780.6 Office Visit 04/16/2003 3:30p Giovanni Benitez M.D. 91279 465.9 786.2 Office Visit 11/16/2002 9:00a Lin Esparza, 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 [address] 684 Office Visit 10/05/2002 2:30p 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 [address] V20.2 Office Visit 06/29/2002 2:30p Lin 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 [address] 380.22 Office Visit 09/06/2001 3:30[place] [address] V20.2 Office Visit 04/21/2001 11:15[place] [address] Office Visit 12/06/2000 11:30a Lin 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 [address] Office Visit 06/27/2000 1:00p 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 [address] Office Visit 01/27/2000 9:00a 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 [address] 462 Plan of Care 05/06/2017 - Lin Oscar RN,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,MSZ11.3 Encntr screen for infections w sexl mode of transmissComments:STD screening done, pt decline HIV screening. Will also FU with MUSIC LEADER in up:Followup:.
--- OUTSIDE RECORDS SUMMARY | 2017-05-23 17:07 | XMS REPORT ---
:1990 External Reference #:[id number] Author Organization [facility] Address [address] [address] Phone [phone] Care Team Providers Name Role Phone Lin Oscar, BEAN,PATRICK,MS Care Team Information Cork Grinder Unavailable Payers Type Date Identification Numbers Payment Provider Subscriber Commercial Policy Number: [id number] Aejustynana Hannah Jimenez Group Number: [id number] [id number] PayID: [id number] [place] [address] Health Maintenance Expires: Policy Number: [employer] (O) 04/24/2017 [id number] Tony Group Number: [id number] [address] PayID: [id number] [place] [address] Problems Description No Information Family History Date Family Member(s) Problem(s) Comments Father Non Contributory Mother Hypothyroidism First Sister Non Contributory Social History Type Date Description Comments Lives With Sibling - Older Sister Lives With Mother And Father Smoke-Free Smoke-Free Home Yes Smoking Patient has [...] days,5 Lin, 05/25/ tab qd x 4 RN,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,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 days, 4 tab qd x 4days, 3 tabs qd x 4 days, 2 tab qd x 4 days, 1 tab x 4d, 1/2 tab daily x4d Ondansetron 07/30/ Active Tablets 4mg 10tab 1-2 tab q8 Celestina, 2016 Dispers s hours as Lin, needed RN,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,MS nausea Tri-Sprintec 00/00/ Active Tablets 0.18/0.21 30tab 1 po qd Unknown 0000 5/0.25 s mg-3 Out Of Work 02/25/ Hx Zohaib was Celestina 2015 - seen in Lin, 07/29/ the RN,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,MS 2017 office, out of work 02/24 through 02/27/16 due to medical reasons Doxycycline 06/11/ Hx Tablets DR 100mg 46tab 1 po qd Greta Oscar 2014 - s starting 2 Lin, 09/09/ days prior RN,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,MS 2014 to travel, then 1 po daily while traveling, and continue 1 po qd x 4 weeks upon return to [facility] Prednisone 04/24/ Hx Tablets 20mg 5tabs 1 po qd x Celestina 2012 - 5 days Lin, 04/29/ RN,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,MS 2013 Sulfamethoxazol 01/04/ Hx Tablets 800-160mg 10tab 1 po bid x bob Oscar/Trimethoprim 2012 - s 5 days Lin, DS 04/10/ RN,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,MS 2012 PT Is Ill 10/15/ Hx please Precious 2012 - excuse Giovanni, 10/16/ from work M.D. 2011 as she is ill Flonase 10/15/ Hx Suspension 50mcg/Act 1unit 2 sprays Precious 2011 - s each Giovanni 06/10/ nostril qd M.D. 2014 Amoxicillin/Pot 10/15/ Hx Tablets 875-125mg 28tab po bid katarina Lang 2011 - s Giovanni Clavulanate 10/29/ M.D. 2011 Hannah Was Seen 08/05/ Hx Celestina, 08/04 For 2012 - Lni, Pharyngitis 01/12/ RN,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,MS 2011 Amoxicillin 08/04/ Hx Tablets 875mg 20tab 1 po bid x Celestina, 2011 - s 10 days Lin, 08/14/ RN,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,MS 2011 Prednisone 08/04/ Hx Tablets 10mg 15tab 3 po qd x Celestina, 2011 - s 5 days Lin, 08/09/ RN,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,MS 2011 Amoxicillin 09/14/ Hx Tablets 875mg 20tab 1 po bid x [facility], 2010 - s 10 days Lin, 09/24/ RN,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,MS 2010 Prednisone 09/14/ Hx Tablets 10mg 15tab 3 po qd x Celestina, 2010 - s 5 days Lin, 09/19/ RN,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,MS 2010 Amoxicillin/Cla 04/28/ Hx Tablets 875-125mg 20tab 1 po bid x vanessa Oscar 2010 - s 10 days Lin, Potassium 05/08/ with food RN,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,MS 2010 Metronidazole 11/20/ Hx Cream 0.75% 45gm apply to Celestina, 2009 - face bid Lin, 09/13/ RN,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,MS 2010 Retin-A 11/20/ Hx Cream 0.1% 20gm apply to Celestina, 2009 - clean face Lin, 09/13/ at hs, 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,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,MS 2010 every other night Aczone 06/19/ Hx Gel 5% 30G apply Celestina, 2009 - small Lin, 11/18/ amount to RN,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,MS 2009 clean face bid Doxycycline 06/19/ Hx Tablets 100mg 60tab 1 po bid Celestina Monohydrate 2009 - s Lin, 09/13/ RN,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,MS 2010 Cleocin-T 05/23/ Hx Lotion 1% 60cc apply to eClestina2009 - clean face Lin, 06/19/ bid RN,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,MS 2009 Amoxicillin/Cla 10/11/ Hx Tablets 875mg 20tab 1 po bid x vanessa Oscar 2008 - s 10 days, Lin, Potassium 10/20/ take with RN,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,MS 2008 food Lortab 2.5 01/22/ Hx Tablets 10tab 1 po q6 Celestina, 2007 - s hours for Lin, 08/29/ pain prn RN,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,MS 2008 Augmentin 01/22/ Hx Tablets 875mg 28tab 1 po bid Celestina, 2007 - s with food Lin, 02/05/ x 14 days RN,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,MS 2007 Tretinoin 10/09/ Hx Cream 0.1% 20G Apply To 2006 - Clean Face Lin, 02/03/ Sparingly RN,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,MS 2006 Once A Night Minocycline HCL 01/31/ Capsules 100mg 30cap 1 PO qd [facility]2006 - s Lin, 02/03/ RN,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,MS 2006 Cleocin-T Hx Lotion 1% 60cc Apply To 2006 - Clean Face Lin, 01/31/ bid RN,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,MS 2006 Benzaclin 12/22/ Hx Gel 1-5% 50G apply bid 2006 - to clean Lin, 05/23/ face RN,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,MS 2009 large tube please Augmentin 07/13/ Hx Tablets 500mg 14tab 1 PO bid X Celestina2006 - s 7 Days Lin, 07/20/ RN,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,MS 2006 Medrol Dose Chema 02/17/ Hx Tablets 4mg 1Pack as Celestina2005 - Directed Lin, 03/05/ RN,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,MS 2005 Return To Work Tuesday 845.09 Yahaira W 2005 - 11/03 MD Pacheco 2006 Z-Chema 04/02/ Hx Tablets 250mg 1Pak 2 Stat And 462 Yahaira W 2004 - 1 qd X MD Pacheco 04/07/ 4Days 2004 Out Of Gym 09/03/ out of gym Celestina, 2004 - 07/27/04 Lin, 08/31/ through RN,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,MS 200509/04/04 due to mono. return to gym 09/07/04 Zithromax 07/27/ Hx Tablets 250mg 6tabs 2 po day Celestina 2004 - 1, 1 po qd Lin, 08/01/ x day 2-5 RN,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,MS 2004 Prednisone 07/27/ Hx Tablets 20mg 10tab 2 po qd x Celestina, 2004 - s 5 days Lin, 08/01/ RN,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,MS 2004 Out Of Gym out of gym Celestina, 2004 - x 2 weeks Lin, 09/02/ due to RN,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,MS 2004 medical reasons Amoxil 05/13/ Hx Tablets 875mg 20tab 1 PO bid X Celestina, 2004 - s 10 Days Lin, 05/23/ RN,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,MS 2004 Entex LA 04/16/ Hx Tablets 600mg;30 30tab 1/2 tab Glowaja, 2002 - mg s bid Giovanni 04/21/ M.DFanny 2002 Augmentin 11/16/ Hx 500mg 14uni 1 PO bid Celestina 2002 - ts With Food Lin, 11/23/ X 7 Days RN,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,MS 2002 Bactroban 11/16/ Hx Ointment Apply tid Celestina 2002 - Lin, 11/23/ RN,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,MS 2002 None 09/27/ Hx Celestina 2002 - Lin, 11/19/ RN,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,MS 2009 Pediotic 06/29/ Hx 7.5ml 3 Drops Jc Oscar 2002 - Effected Lin, 07/04/ Ear tid RN,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,MS 2002 Medications Administered in Office Medication Date Status Form Strength Qnty SIG Indications Ordering Provider PPD Administered Injection Celestina, 9 Lin, BEAN,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,MS Immunizations CPT Code Status Date Vaccine Lot # [id number] Given 06/10/2014 Typhoid Vaccine, Capsular Polysaccharide For Intramuscular Use 58252 Given 06/10/2014 Typhoid Vaccine, Capsular Polysaccharide For Intramuscular Use 66227 Given 06/10/2014 Hepatitis A Vaccine, Adult Dosage [id number] 09017 Given 10/22/2008 Menactra/Menveo Meningococcal Vaccine [id number] 64857 Given 10/22/2008 Tdap (Adacel) Ages 7 And Above Only [id number] 93358 Given 10/05/2002 Immunization Td 7 Yrs Or Older 54910 Given 12/15/1995 MMR Virus Immunization 28976 Given 12/15/1995 DTaP Immunization 7 Yrs & Younger 72332 Given 10/06/1992 Hepatitis B Vac Ped/Adolescent 3 Dose Schedule 25545 Given 10/06/1992 Oral Poliovirus Immunization 21767 Given 06/05/1992 DTaP Immunization 7 Yrs & Younger 70103 Given 01/28/1992 Hib Pedvaxhib Vac 3 Dose Schedule 43095 Given 01/28/1992 Oral Poliovirus Immunization 54738 Given 01/28/1992 Hepatitis B Vac Ped/Adolescent 3 Dose Schedule 60519 Given 09/26/1991 Hepatitis B Vac Ped/Adolescent 3 Dose Schedule 29994 Given 09/26/1991 MMR Virus Immunization 40851 Given 03/27/1991 DTaP Immunization 7 Yrs & Younger 64659 Given 03/27/1991 Hib Pedvaxhib Vac 3 Dose Schedule 86797 Given 01/26/1991 Oral Poliovirus Immunization 21136 Given 01/26/1991 DTaP Immunization 7 Yrs & Younger 94820 Given 01/26/1991 Hib Pedvaxhib Vac 3 Dose Schedule 38264 Given 1990 Oral Poliovirus Immunization 67008 Given 1990 DTaP Immunization 7 Yrs & Younger 22875 Given 1990 Hib Pedvaxhib Vac 3 Dose [...] Test Date Test Result H/L Range Note Laboratory test 01/04/2013 Urine Culture Microbiology res 1 finding <SEE NOTE> Laboratory test 04/02/2005 Throat Culture NO BETA HEMOLYTI 2 finding <SEE NOTE> Aaliyah De La Torre Acute 07/27/2004 [...] Procedures Date CPT Code Description Status 10/22/2008 06863 Visual Screening Test Completed 09/09/2005 72871 Visual Screening Test Completed 07/20/2004 25056 Visual Screening Test Completed 04/21/2001 91792 Electrocardiogram Complete Completed Encounters Type Date Location Provider CPT E/M Dx Office Visit 07/30/2016 10:30a Lin Espar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 [address] A08.39 R55 R51 Office Visit 02/26/2016 2:30p Lin 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 [address] Y03.0xxA Y03.0xxA S13.4xxA S13.4xxA Office Visit 06/10/2014 3:00p Lin Esparza 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 [address] V05.8 V65.40 V05.3 V05.8 V65.49 Office Visit 01/04/2013 10:00a Lin [place]arza 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 [address] 788.1 788.41 Office Visit 01/14/2012 2:30p Lin Espar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 [address] 782.1 Office Visit 10/16/2011 8:00a Giovanni Benitez M.D. 00794 461.1 461.0 Office Visit 08/05/2011 2:00p Lin 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 [address] 463 Office Visit 09/14/2010 1:00p Lin [place]ar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 [address] 462 461.0 463 Office Visit 04/28/2010 10:15a Lin Esparza 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 [address] 463 780.60 Office Visit 11/20/2009 2:00p Lin 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 [address] 706.1 706.2 Office Visit 06/19/2009 1:30p Lin 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 [address] 706.1 Office Visit 10/22/2008 3:30p Lin [place] RN,[place] [address] V20.2 V07.2 Office Visit 10/11/2008 2:30p Lin Esparza, 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 [address] 461.8 Office Visit 01/23/2008 1:00p Lin Esparza, 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 [address] 784.0 461.8 Office Visit 06/05/2007 9:30a Lin Esparza 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 [address] V20.2 Office Visit 12/22/2006 10:00a Lin 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 [address] 706.2 706.1 Office Visit 07/13/2006 9:30a Lin Esparza, 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 [address] 684 Office Visit 02/17/2006 3:00p Lin Esparza 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 [address] 847.1 723.1 Office Visit 11/01/2005 9:15[place] [address] 845.09 Office Visit 09/09/2005 3:00p Lin Esparza 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 [address] V20.2 847.1 214.9 Office Visit 04/02/2005 11:00[place] [address] 462 Office Visit 07/30/2004 5:15[place] [address] 075 Office Visit 07/27/2004 10:30a Lin Esparza 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 [address] 462 075 785.6 Office Visit 07/20/2004 3:00p Lin Esparza 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 [address] V20.2 465.9 Office Visit 05/13/2004 11:30a Lin Esparza 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 [address] 462 Office Visit 01/05/2004 8:00a Giovanni Benitez M.D. 17300 462 780.6 Office Visit 04/16/2003 3:30p Giovanni Benitez M.D. 95634 465.9 786.2 Office Visit 11/16/2002 9:00a Lin Esparza 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 [address] 684 Office Visit 10/05/2002 2:30p Lin Esparza, 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 [address] V20.2 Office Visit 06/29/2002 2:30p Lin Esparza 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 [address] 380.22 Office Visit 09/06/2001 3:30[place] [address] V20.2 Office Visit 04/21/2001 11:15[place] [address] Office Visit 12/06/2000 11:30a Lin Esparza 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 [address] Office Visit 06/27/2000 1:00p Lin Esparza 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 [address] Office Visit 01/27/2000 9:00a Lin Esparza 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 [address] 462 Plan of Care 05/06/2017 - Lin sOcar RN,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,MSZ11.3 Encntr screen for infections w sexl mode of transmissComments:STD screening done, pt decline HIV screening. Will also FU with CHOPPER OPERATOR in up:Followup:.
[2017-05-23 17:55] VITALS: BP 121/80
--- NOTE | 2017-05-24 16:43 | UC ---
- Progress Note Progress Note: Pt Rx metronidazole for 7 days + gardnerlla no change Michael
--- NOTE | 2017-05-27 15:31 | UC ---
Gus Victor Nikita, scribed for Maureen Valente MD on 05/23/17 at 1837 . Complaint Female HPI - HPI Summary HPI Summary: This patient is a 26 year old F presenting to [facility] with a chief complaint of unusual vaginal discharge since 4 days ago. The CC is described as light yellow , and the odor is different. The patient rates the pain 0/10 in severity. Symptoms aggravated by nothing. Symptoms alleviated by nothing. Patient reports dysuria (1 episode, 3 days ago). Patient denies itching, pelvic pain, sores, and sore throat. LMP ended 8 days ago. Pt is on BCP (Tri Sprintec). - History Of Current Complaint Chief Complaint: UCGU Stated Complaint: VAG DISCHARGE Time Seen by Provider: 05/23/17 18:28 Hx Obtained From: Patient Hx Last Menstrual Period: 05/12/2017 Onset/Duration: Sudden Onset, Lasting Days Severity Currently: None Pain Intensity: 0 Pain Scale Used: 0-10 Numeric Aggravating Factor(s): Nothing Alleviating Factor(s): Nothing Associated Signs And Symptoms: Positive: Vaginal Discharge - light yellow, and the odor is different; Patient reports dysuria (resolved, 3 days ago). Patient denies itching, pelvic pain, sores, and sore throat. - Allergies/Home Medications Allergies/Adverse Reactions: Allergies Allergy/AdvReac Type Severity Reaction Status Date / Time MS Sulfa Antibiotics Allergy Severe Hives Verified 05/23/17 17:49 [Sulfa Antibiotics] Home Medications: Home Medications predniSONE TAB* [Deltasone TAB*] 20 mg PO DAILY 05/23/17 [History Confirmed ] PMH/Surg Hx/FS Hx/Imm Hx Endocrine History: Other Other Endocrine History: No DM, Thyroid disease Cardiovascular History: Other Other Cardiovascular History: NO HTN Other Respiratory History: NO COPD, asthma - Surgical History Surgical History: None - Family History Known Family History: Positive: Other - HLD Negative: Cardiac Disease, Hypertension, Diabetes - Social History Alcohol Use: Occasionally Alcohol Amount: 1-2 on the weekend Substance Use Type: None Substance Use Comment - Amount & Last Used: quit in [employer] Smoking Status (MU): Never Smoked Tobacco - Immunization History Most Recent Influenza Vaccination: not utd Most Recent Tetanus Shot: utd Most Recent Pneumonia Vaccination: none Review of Systems ENT: Other - denies sore throat Genitourinary: Dysuria - dysuria (1 episode, 3 days ago)., Vaginal/Penile Discharge - light yellow, and the odor is different, Other - denies itching, pelvic pain, sores All Other Systems Reviewed And Are Negative: Yes Physical Exam Triage Information Reviewed: Yes Appearance: Well-Nourished Vital Signs: Initial Vital Signs Temp 98.2 F 05/23/17 17:51 Pulse 63 05/23/17 17:51 Resp 18 05/23/17 17:51 BP 121/80 05/23/17 17:51 Pulse Ox 100 05/23/17 17:51 Vital Signs Reviewed: Yes Eye Exam: Normal ENT Exam: Normal Neck exam: Normal Respiratory Exam: Normal Respiratory: Positive: Other: - no dyspnea, no tachypnea, normal respiratory rate Cardiovascular Exam: Normal Cardiovascular: Positive: Other: - Heart rate regular, good general skin color, good capillary refill Abdominal Exam: Normal Abdomen Description: Positive: Nontender, No Organomegaly, Soft, Other: - Abd soft, no c/o's tenderness. Normal female genitalia. No external sores. Vag vault ok. Normal cervix, mildly erythematous. No purulence. No CMT. No lisa adnexal mass or tenderness. Mild whitish yellow discharge. Bowel Sounds: Positive: Present Musculoskeletal Exam: Normal Musculoskeletal: Positive: Strength Intact Neurological Exam: Normal - grossly normal Neurological: Positive: Other: - nonfocal, grossly intact Psychological Exam: Normal Psychological: Positive: Other: - conversing easily and appropriately Skin Exam: Normal - nondiaphoretic, general normal color Complaint Female Dx - Course Course Of Treatment: Ms. Jimenez reports that she is on a several week prednisone course d/t recent allergic rxn 2/2 sulfa abx. This may contribute to current sx. Reviewed urine dip and ucg (in My 1%), unremarkable. D/w Ms. Jimenez coa / tx plan. Questions as posed answered to the best of my ability. - Differential Dx/Diagnosis Provider Diagnoses: Vagitis Discharge - Discharge Plan Condition: Stable Disposition: HOME Prescriptions: Fluconazole [Diflucan 150 MG (NF)] 150 mg PO DAILY #2 tab metroNIDAZOLE VAGINAL 0.75%* 1 applic VAGINAL BEDTIME #2 tube Patient Education Materials: Vaginitis (ED) Referrals: Soha Oscar NP [Primary Care Provider] - Additional Instructions: Please follow up with your primary care provider per routine. Seek medical attention for worse or new problems in the meantime. Avoid sexual relations until your results are back, and treatment (if indicated ) is complete. The documentation as recorded by the Gus griggs Nikita accurately reflects the service I personally performed and the decisions made by me, Maureen Valente MD.
== END 2017-05-23 19:10 | disposition home or self-care (01) ==
LOC: UCEAST 16:59
DX: N76.0 Acute vaginitis (principal); Z32.02 Encounter for pregnancy test, result negative; Z88.2 Allergy status to sulfonamides
CPT/HCPCS: 81003; 81025; 87480; 87491; 87510; 87591; 87661; 99212; G0463